=== PATIENT | female | born 1960 | race African-American/Black ===

== ENCOUNTER 2023-12-04 08:58 | Emergency (ER) | payer OTHER ==
[2023-12-04 09:19] VITALS: BP 150/80; PULSE 60; RESP 16; TEMP 98.2; BMI 25.9
[2023-12-04] MEDS ORDERED: ACETAMINOPHEN 325 MG TABLET (FP) ONE (09:53)
[2023-12-04] MEDS: ACETAMINOPHEN 325 MG TABLET (FP) PO ONE (09:55)
[2023-12-04] MEDS ORDERED: LIDOCAINE 4% PATCH TP ONE (09:56)
[2023-12-04] MEDS: LIDOCAINE 5% TOPICAL PATCH TP ONE (10:37)
[2023-12-04] MEDS ORDERED: LIDOCAINE PATCH REMOVAL MC ONE (22:00)
== END 2023-12-04 11:45 | disposition home or self-care (01) ==
LOC: JER 08:58 → JERFT 08:58
DX: M79.651 Pain in right thigh (principal); M79.672 Pain in left foot; W18.39XA Other fall on same level, initial encounter
CPT/HCPCS: 73502-TC-RT-FY; 73610-TC-LT-FY; 73630-TC-LT; 99284-25